=== PATIENT | female | born 1960 ===

== ENCOUNTER → 2017-03-25 07:26 | Outpatient (CLI) | payer OTHER | END | disposition home or self-care (01) | LOC: LAB 07:26 | DX: D72.819 Decreased white blood cell count, unspecified (principal); D72.818 Other decreased white blood cell count; D68.0 Von Willebrand disease; D68.9 Coagulation defect, unspecified ==

== ENCOUNTER 2018-04-28 09:50 | Outpatient (CLI) | payer OTHER | END 2018-04-28 09:51 | disposition home or self-care (01) | LOC: SONOGRAMA 09:50 | DX: E04.2 Nontoxic multinodular goiter (principal) ==